=== PATIENT | male | born 1955 | race Caucasian/White ===

== ENCOUNTER 2017-10-11 21:05 | Inpatient (IN) | payer MEDICARE, OTHER ==
[2017-10-11 21:28] LABS: ADD MAN DIFF? NO
[2017-10-11 21:29] LABS: BASO # 0.1 x10^3/uL (0.0-0.2); BASO % 1 % (0-3); EOS # 0.4 x10^3/uL (0.0-0.7); EOS % 3 % (0-3); HEMATOCRIT 40.4 % (39.0-53.0); HEMOGLOBIN 13.7 g/dL (13.0-17.5); LYMPH # 2.1 x10^3/uL (1.0-4.8); LYMPH % 18 % (24-48); MEAN CORPUSCULAR HEMOGLOBIN 29 pg (25-35); MEAN CORPUSCULAR HGB CONC 34 g/dL (31-37); MEAN CORPUSCULAR VOLUME 87 fL (79-100); MONO # 0.9 x10^3/uL (0.0-1.1); MONO % 8 % (0-9); NEUT # 8.1 x10^3uL (1.8-7.7); NEUT % 70 % (31-73); PLATELET COUNT 379 x10^3/uL (140-400); RED BLOOD COUNT 4.64 x10^6/uL (4.30-5.70); RED CELL DISTRIBUTION WIDTH 17.6 % (11.5-14.5); WHITE BLOOD COUNT 11.5 x10^3/uL (4.0-11.0)
[2017-10-11 21:40] LABS: ANION GAP 10 (6-14); BLOOD UREA NITROGEN 13 mg/dL (8-26); CALCIUM 9.1 mg/dL (8.5-10.1); CARBON DIOXIDE 25 mmol/L (21-32); CHLORIDE 103 mmol/L (98-107); GFR 75.5; GLUCOSE 90 mg/dL (70-99); POTASSIUM 3.9 mmol/L (3.5-5.1); SODIUM 138 mmol/L (136-145)
[2017-10-11 21:54] LABS: TROPONINI < 0.017 ng/mL (0.000-0.055)
[2017-10-11 21:59] LABS: NT-PRO BNP 26 pg/mL (0-124)
[2017-10-11] MEDS ORDERED: NITROGLYCERIN SUBLINGUAL 0.4 MG BOTTLE OF 25. SL (22:00)
[2017-10-11] MEDS: ASPIRIN CHEWABLE 81 MG TABLET. PO (22:27)
[2017-10-11] MEDS ORDERED: ACETAMINOPHEN 325 MG TABLET. PO (23:15)
[2017-10-11] MEDS ORDERED: ONDANSETRON PF 4 MG/2 ML VIAL. IV (23:15)
[2017-10-11] MEDS ORDERED: MORPHINE SULFATE 4 MG/ML DISP.SYRIN. IV (23:15)
[2017-10-12] MEDS: LITHIUM CARBONATE 300 MG CAPSULE PO (02:07)
[2017-10-12 02:40] LABS: TROPONINI < 0.017 ng/mL (0.000-0.055)
[2017-10-12 06:07] LABS: TROPONINI < 0.017 ng/mL (0.000-0.055)
[2017-10-12] MEDS: NITROGLYCERIN SUBLINGUAL 0.4 MG BOTTLE OF 25. SL (08:11)
[2017-10-12] MEDS ORDERED: NON FORMULARY ITEM (Sildenafil Citrate (Viagra) 50 MG) PO (09:45)
[2017-10-12] MEDS: amLODIPine BESYLATE 10 MG TABLET PO (10:38)
[2017-10-12] MEDS: CYANOCOBALAMIN (VITAMIN B-12) 1,000 MCG TABLET. PO (10:38)
[2017-10-12] MEDS: PANTOPRAZOLE 40 MG TABLET.DR. PO (10:38)
[2017-10-12] MEDS: FINASTERIDE 5 MG TABLET. PO (10:38)
[2017-10-12] MEDS: SERTRALINE 50 MG TABLET. PO (10:39)
[2017-10-12] MEDS: hydrOXYzine 10 MG TABLET PO (10:39)
[2017-10-12] MEDS: LISINOPRIL 20 MG TABLET PO (10:39)
[2017-10-12] MEDS ORDERED: LITHIUM CARBONATE 300 MG CAPSULE PO (21:00)
[2017-10-12] MEDS ORDERED: NON FORMULARY ITEM (Lithium Carbonate 300 MG) PO (21:00)
== END 2017-10-12 12:35 | disposition home or self-care (01) | DRG 313 ==
LOC: 2 NORTH 23:00 → ER 21:05
DX: R07.89 Other chest pain (principal); E78.00 Pure hypercholesterolemia, unspecified; E78.5 Hyperlipidemia, unspecified; F17.210 Nicotine dependence, cigarettes, uncomplicated; F43.10 Post-traumatic stress disorder, unspecified; I10 Essential (primary) hypertension; Z82.49 Family history of ischemic heart disease and other diseases of the circulatory system; Z90.49 Acquired absence of other specified parts of digestive tract
CPT/HCPCS: 36415; 71045; 80048; 83880; 84484; 85025; 93005; 99285; 99285-25